=== PATIENT | male | born 1995 ===

== ENCOUNTER 2025-01-14 15:58 | Emergency (ER) | payer OTHER, SELFPAY ==
--- NOTE | 2025-01-14 16:03 | EKG_ITS ---
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
[2025-01-14 16:10] VITALS: BP 157/84; PULSE 107; RESP 18; TEMP 37.5; O2SAT 100; BMI 47.9
--- NOTE | 2025-01-14 16:15 | DI.RAD.S_ITS ---
PROCEDURE: XR CHEST 1V INDICATIONS: Chest tightness TECHNIQUE: One view of the chest was acquired. COMPARISON: None. FINDINGS: Surgical changes and devices: None. Lungs and pleura: Lungs are clear. No pleural effusions or pneumothorax. Mediastinum: Mediastinal contours appear normal. Heart size is normal. Bones and chest wall: No suspicious bony lesions. Overlying soft tissues appear unremarkable. IMPRESSION: No acute cardiopulmonary abnormality is seen. Dictated by: Pedro Luis Rico M.D. on 01/14/2025 at 16:39 Approved by: Pedro Luis Rico M.D. on 01/14/2025 at 16:39
--- NOTE | 2025-01-14 16:15 | EKG_ITS ---
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
--- NOTE | 2025-01-14 16:15 | ED.CHESTPAIN ---
HPI - Chest Pain General Chief Complaint: Chest Pain Stated Complaint: Chest discomfort x 2days, sharp pn as well Time Seen by Provider: 01/14/25 16:08 Source: patient, RN notes reviewed and old records reviewed Mode of arrival: Ambulatory Limitations: no limitations Limitations: no limitations History of Present Illness HPI narrative: 29-year-old male history of GERD who presents with complaint of some chest tightness that started yesterday he states intermittent nothing seems to make it better or worse. He does not noticed any change with the exertion. He states maybe it felt worse while sitting in his car driving who states maybe it felt a little bit better lying flat. He states no shortness of breath. No fevers or chills, no cold cough or congestion symptoms. No nausea or vomiting. No diaphoresis. No issues with bowel movements or urination. No new swelling of extremities. He felt a little bit lightheaded earlier. States he has a similar episode a couple months ago but states it went away. He states he takes ibuprofen PRN, he is supposed to be taking omeprazole and sertraline but needs to follow up with this physician for refills. He denies any prior surgeries. No known drug allergies. He vapes tobacco, no alcohol, no recreational drugs. Denies any cardiac, pulmonary embolic or vascular history notes his dad had some palpitations but no heart attacks in the past. Patient gets his primary care through the [place]. Related Data Allergies Allergy/AdvReac Type Severity Reaction Status Date / Time No Known Drug Allergies Allergy Verified 01/14/25 16:10 Review of Systems Review of Systems ROS Unobtainable: All systems reviewed & are unremarkable except as noted in HPI and below Patient History Social History Smoking Status: Current every day smoker Smoking Status: Current every day smoker Exam Narrative Exam Narrative: GENERAL: Alert and oriented x three, male in mild distress HEENT: Head normocephalic, atraumatic, EOMI, pupils reactive, face symmetric, moist mucous membranes NECK: Supple, full range of motion CARDIOVASCULAR: Regular rate and rhythm without murmurs, rubs or gallops. No JVD. No edema bilateral lower extremities. RESPIRATORY: Breath sounds equal bilaterally, no wheezes rales or rhonchi. No tachypnea or accessory muscle use. Speaks in full sentences ABDOMEN: Soft, nontender. Normoactive bowel sounds all 4 quadrants. No guarding or rebound, rigidity, no mass : No CVA tenderness EXTREMITIES: Normal range of motion, no clubbing or edema. Neurovascularly intact NEUROLOGICAL: Cranial nerves II through XII grossly intact. Moving all extremities SKIN: Warm, dry, no petechiae, no rashes or lesions. Initial Vital Signs Initial Vital Signs: Vital Signs Temperature 99.5 F 01/14/25 16:10 Pulse Rate 107 H 01/14/25 16:10 Respiratory Rate 18 01/14/25 16:10 Blood Pressure 157/84 H 01/14/25 16:10 Pulse Oximetry 100 01/14/25 16:10 Oxygen Delivery Method Room Air 01/14/25 16:10 Scores HEART Score Heart Score history: Moderately Suspicious Heart Score EKG: Non-Specific repolarization disturbance Heart Score Age: < 45 years old Heart Score risk factors: No known risk factors Heart Score troponin: < or = to normal limit Heart Score Total: 2 Course Orders Ordered: ED Orders 01/14/25 16:03 EKG-12 Lead Stat 01/14/25 16:15 XR chest 1V Stat EKG-12 Lead Stat 01/14/25 16:23 Complete Blood Count AUTO DIFF Stat Comprehensive Metabolic Panel Stat Lipase Stat Magnesium Stat NT-proBNP (BNP-Adult 18+) Stat Troponin I Stat 01/14/25 18:23 EKG-12 Lead Stat 01/14/25 18:53 Trop I [Troponin I] Stat Vital Signs Vital signs: Vital Signs - 8 hr 01/14/25 16:10 01/14/25 19:35 Temperature 99.5 F Pulse Rate 107 H 89 Respiratory Rate 18 18 Blood Pressure 157/84 H 129/85 Pulse Oximetry 100 97 Oxygen Delivery Method Room Air Room Air MDM - Chest Pain Lab Data 01/14/25 16:23 01/14/25 16:23 Labs: Lab Results 01/14/25 01/14/25 Range/Units 16:23 18:53 WBC 5.7 (4.5-11.0) X10^3/uL RBC 5.48 (4.5-5.9) X10^6/uL Hgb 15.8 (13.5-17.5) g/dL Hct 45.8 (41-53) % MCV 83.5 (80-100) fL MCH 28.8 (26-34) PG MCHC 34.5 (30-36) % RDW 13.5 (11.6-14.8) % Plt Count 249 (150-400) X10^3/uL Neut % (Auto) 58.0 (50-75) % Lymph % (Auto) 28.7 (25-40) % [place] % (Auto) 10.0 (3-14) % Eos % (Auto) 2.4 (2-4) % Baso % (Auto) 0.9 (0-2) % Neut # (Auto) 3300 (4435-6650) /uL Lymph # (Auto) 1600 (4329-0377) /uL [place] # (Auto) 600 (0-900) /uL Eos # (Auto) 100 (0-450) /uL Baso # (Auto) 0 (0-100) /uL Sodium 140 (137-145) mmol/L Potassium 4.0 (3.4-5.1) mmol/L Chloride 104 (98-107) mmol/L Carbon Dioxide 25 (22-32) mmol/L BUN 8 L (9-20) mg/dL Creatinine 0.94 (0.66-1.25) mg/dL Estimated GFR > 60 (>60) mL/min BUN/Creatinine Ratio 8.5 (6-22) Glucose 98 (70-99) mg/dL Calcium 9.6 (8.4-10.2) mg/dL Magnesium 1.8 (1.6-2.3) mg/dL Total Bilirubin 0.9 (0.2-1.3) mg/dL AST 56 (17-59) IU/L ALT 139 H (<50) IU/L Alkaline Phosphatase 66 (38-126) U/L Troponin I < 0.012 < 0.012 (0.01-0.034) ng/mL NT-Pro-B Natriuret Pep < 20 (<125) pg/mL Total Protein 8.3 H (6.3-8.2) g/dL Albumin 4.9 (3.5-5.0) g/dL Globulin 3.4 (1.7-4.1) g/dL Albumin/Globulin Ratio 1.4 (1.0-2.8) Lipase 30 (23-300) U/L MDM Narrative Medical decision making narrative: EKG shows sinus tachycardia with a rate of 105 [place] 150 QRS 88 QTC of [address]-elevation or depression. Repeat EKG shows sinus rhythm nonspecific T-wave change rate of 100 [place] 150 QRS 86 QTC of 443. Labs has a normal white count, hemoglobin and platelets, chemistries are appropriate BUN is 8 creatinine 0.94, LFTs are normal except for an ALT of 139 normal bilirubin AST, lipase is 30. Troponins less than 0.012 with a BNP of less than 20. Repeat troponin less than 0.012 Chest x-ray shows no acute cardiopulmonary abnormality Patient has a heart score of 2. Discussed findings with the patient plan for discharge home but with return precautions. Discharge Plan Departure Patient Disposition: Home Clinical Impression: Chest pain Instructions: DI for Chest Pain Activity Restrictions/Additional Instructions: Follow up for re-evaluation if your symptoms are persisting. Please return if you develop fevers, new chest pain or changing chest pain, new shortness of breath, any lightheadedness or passing out, new swelling of your extremities, persistent vomiting or other new or concerning changes. Stand Alone Forms: Patient Portal/API
[2025-01-14 16:42] LABS: Add Manual Diff / Slide Review NO; Hematocrit 45.8 % (41-53); Hemoglobin 15.8 g/dL (13.5-17.5); Lymphocytes Absolute Auto 1600 /uL (1100-4500); Mean Corpuscular HGB Conc 34.5 % (30-36); Mean Corpuscular Hemoglobin 28.8 PG (26-34); Mean Corpuscular Volume 83.5 fL (80-100); Platelet Count 249 X10^3/uL (150-400)
[2025-01-14 16:50] LABS: Alanine Aminotransferase 139 IU/L (<50); Albumin 4.9 g/dL (3.5-5.0); Albumin Globulin Ratio 1.4 (1.0-2.8); Alkaline Phosphatase 66 U/L (38-126); Blood Urea Nitrogen 8 mg/dL (9-20); Calcium 9.6 mg/dL (8.4-10.2); Carbon Dioxide 25 mmol/L (22-32); Chloride 104 mmol/L (98-107); Estimated Glomerular Filt Rate > 60 mL/min (>60); Globulin 3.4 g/dL (1.7-4.1); Glucose 98 mg/dL (70-99); HEMOLYSIS 30 (0-50); Lipase 30 U/L (23-300); Magnesium 1.8 mg/dL (1.6-2.3); Potassium 4.0 mmol/L (3.4-5.1); Sodium 140 mmol/L (137-145); Total Protein 8.3 g/dL (6.3-8.2)
[2025-01-14 17:02] LABS: NT-proBNP (BNP-Adult 18+) < 20 pg/mL (<125); Troponin I < 0.012 ng/mL (0.01-0.034)
[2025-01-14 19:24] LABS: Troponin I < 0.012 ng/mL (0.01-0.034)
[2025-01-14 19:35] VITALS: BP 129/85; PULSE 89; RESP 18; O2SAT 97
== END 2025-01-14 19:49 | disposition home or self-care (01) ==
PROVIDERS: Emergency Provider Emergency Medicine
DX: R07.9 Chest pain, unspecified (principal); R00.0 Tachycardia, unspecified
CPT/HCPCS: 36415; 71045; 80053; 83690; 83735; 83880; 84484; 85025; 93005; 93010; 99283; 99284

== ENCOUNTER 2025-01-26 09:52 | Emergency (ER) | payer OTHER, SELFPAY ==
[2025-01-26 09:57] VITALS: BP 154/98; PULSE 89; RESP 16; O2SAT 100; BMI 47.2
--- NOTE | 2025-01-26 10:00 | ED_ITS ---
HPI - Chest Pain General Chief Complaint: Chest Pain Stated Complaint: Chest pain Time Seen by Provider: 01/26/25 09:59 History of Present Illness HPI narrative: 30-year-old gentleman history of GERD seen on for chest pain with negative workup at that time since today again with similar complaints as he woke up at 5:00 a.m. with chest pain under his left breast nonradiating lasted for a few sec then resolved on its own and then happened again at 8:00 a.m. today and he came in to be evaluated. Patient denies any recent long distance travel, smoking, nausea, vomiting, diaphoresis, back pain, abdominal pain, leg pain or leg swelling. He is currently pain-free at this time. Other than what is stated 14 point review of systems negative. Related Data Allergies Allergy/AdvReac Type Severity Reaction Status Date / Time No Known Drug Allergies Allergy Verified 01/14/25 16:10 Review of Systems Review of Systems ROS Unobtainable: All systems reviewed & are unremarkable except as noted in HPI and below Exam Narrative Exam Narrative: GENERAL: [30] year old patient appears stated age. Well-developed patient, in mild distress. HEAD: Atraumatic. Normocephalic. EYES: Pupils equal round and reactive. Extraocular motions intact. No scleral icterus. No injection or drainage. ENT: Nose without bleeding, purulent drainage. Throat without erythema, tonsillar hypertrophy or exudate. Airway patent. NECK: Trachea midline. Non tender CARDIOVASCULAR: Regular rate and rhythm without murmurs, gallops, or rubs. RESPIRATORY: Clear to auscultation. Breath sounds equal bilaterally. No wheezes, rales, or rhonchi. GASTROINTESTINAL: Abdomen soft, non-tender, nondistended. EXTREMITIES: No edema or joint tenderness. BACK: Nontender without deformity or crepitance. No flank tenderness. NEURO: AOx3. SKIN: No rash or erythema of visible areas Initial Vital Signs Initial Vital Signs: Vital Signs Pulse Rate 89 01/26/25 09:57 Respiratory Rate 16 01/26/25 09:57 Blood Pressure 154/98 H 01/26/25 09:57 Pulse Oximetry 100 01/26/25 09:57 Oxygen Delivery Method Room Air 01/26/25 09:57 Scores HEART Score Heart Score history: Slightly Suspicious Heart Score EKG: Normal Heart Score Age: < 45 years old Heart Score risk factors: No known risk factors Heart Score troponin: < or = to normal limit Heart Score Total: 0 Course Orders Ordered: ED Orders 01/26/25 09:59 XR chest 1V Stat Complete Blood Count AUTO DIFF Stat Comprehensive Metabolic Panel Stat Lipase Stat Magnesium Stat NT-proBNP (BNP-Adult 18+) Stat Troponin I Stat EKG-12 Lead Stat 01/26/25 10:00 D Dimer Stat Vital Signs Vital signs: Vital Signs - 8 hr 01/26/25 09:57 Pulse Rate 89 Respiratory Rate 16 Blood Pressure 154/98 H Pulse Oximetry 100 Oxygen Delivery Method Room Air MDM - Chest Pain Imaging Data Chest x-ray: Radiologist's Impression: [address] [address] XRay Report Signed Patient: Jessee Dunham MR#: [id number] : 1995 Acct:[id number] Age/Sex: 30 / M Date of Service: 01/26/25 Loc: ED Accession Number: [id number] Procedure: XR chest 1V Ordering Provider: Juan M Loco D.O. PROCEDURE: XR CHEST 1V INDICATIONS: chest pain TECHNIQUE: One view of the chest was acquired. COMPARISON: [facility], , XR CHEST 1V, 01/14/2025, 16:13. FINDINGS: Surgical changes and devices: None. Lungs and pleura: Lungs are clear. No pleural effusions or pneumothorax. Mediastinum: Mediastinal contours appear normal. Heart size is normal. Bones and chest wall: No suspicious bony lesions. Overlying soft tissues appear unremarkable. IMPRESSION: No acute cardiopulmonary abnormality is seen. Dictated by: Pedro Luis Rico M.D. on 01/26/2025 at 10:38 Approved by: Pedro Luis Rico M.D. on 01/26/2025 at 10:38 ECG Data Interpretation: NSR HR 78 AR 146 QRS [address]-t wave change Unchanged from 01/14/25 [facility] Narrative Medical decision making narrative: All lab work, vital signs, nurse triage note, medication list, previous ER visits, and all imaging studies reviewed. D-dimer less than 215 troponin normal BNP <20 chest x-ray showed no acute process. Heart score is 0. Differential diagnosis anxiety chest wall pain GERD PE. [facility] left breast enlargement compared to right per patient report. Discharge Plan Departure Patient Disposition: Home Clinical Impression: Chest pain Instructions: DI for Chest Pain Activity Restrictions/Additional Instructions: Return with new or worsening symptoms. [facility] Referrals: ProviderAnnie [Primary Care Provider, Family Practice] Stand Alone Forms: Patient Portal/API
--- NOTE | 2025-01-26 10:00 | EKG_ITS ---
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
[2025-01-26] MEDS: KETOROLAC 30 MG/ML VIAL 15 MG IV (10:12)
[2025-01-26 10:19] LABS: Add Manual Diff / Slide Review NO; Hematocrit 43.4 % (41-53); Hemoglobin 14.7 g/dL (13.5-17.5); Lymphocytes Absolute Auto 1500 /uL (1100-4500); Mean Corpuscular HGB Conc 33.8 % (30-36); Mean Corpuscular Hemoglobin 28.2 PG (26-34); Mean Corpuscular Volume 83.4 fL (80-100); Platelet Count 233 X10^3/uL (150-400)
[2025-01-26 10:29] LABS: Alanine Aminotransferase 115 IU/L (<50); Albumin 4.5 g/dL (3.5-5.0); Albumin Globulin Ratio 1.5 (1.0-2.8); Alkaline Phosphatase 59 U/L (38-126); Blood Urea Nitrogen 8 mg/dL (9-20); Calcium 8.9 mg/dL (8.4-10.2); Carbon Dioxide 25 mmol/L (22-32); Chloride 107 mmol/L (98-107); Estimated Glomerular Filt Rate > 60 mL/min (>60); Globulin 3.0 g/dL (1.7-4.1); Glucose 102 mg/dL (70-99); HEMOLYSIS < 15 (0-50); Lipase 44 U/L (23-300); Magnesium 1.8 mg/dL (1.6-2.3); Potassium 4.2 mmol/L (3.4-5.1); Sodium 139 mmol/L (137-145); Total Protein 7.5 g/dL (6.3-8.2)
[2025-01-26 10:41] LABS: NT-proBNP (BNP-Adult 18+) < 20 pg/mL (<125); Troponin I < 0.012 ng/mL (0.01-0.034)
[2025-01-26 11:45] VITALS: BP 140/86; PULSE 81; RESP 16; O2SAT 99
== END 2025-01-26 11:45 | disposition home or self-care (01) ==
PROVIDERS: Emergency Provider Family Medicine
DX: R07.9 Chest pain, unspecified (principal)
CPT/HCPCS: 36415; 71045; 80053; 83690; 83735; 83880; 84484; 85025; 85379; 93005; 96374; 99284; J1885